=== PATIENT | female | born 1950 ===

== ENCOUNTER 2023-05-30 09:48 | Outpatient (CLI) | payer OTHER ==
[2023-05-30] MEDS ORDERED: NORVASC2.5 M1 (13:39)
[2023-05-30] MEDS ORDERED: PEPCID AC20 MG (13:39)
[2023-05-30] MEDS ORDERED: RESTORIL30 M1 (13:39)
[2023-05-30] MEDS ORDERED: LISINOPRIL40 MG (13:39)
[2023-05-30] MEDS ORDERED: TOPROL XL25 M1 (13:40)
[2023-05-30] MEDS ORDERED: CELEXA20 MG (13:40)
== END 2023-05-30 09:49 | disposition home or self-care (01) ==
LOC: EKG 09:48
PROVIDERS: ATTEND Obstetrics & Gynecology Gynecology
DX: I10 Essential (primary) hypertension (principal)

== ENCOUNTER 2023-06-06 07:47 | Day surgery (SDC) | payer OTHER ==
[~2023-06-06 07:47] MED LIST: CELEXA20 MG; LISINOPRIL40 MG; NORVASC2.5 M1; PEPCID AC20 MG; RESTORIL30 M1; TOPROL XL25 M1
[2023-06-06] MEDS ORDERED: CIPROFLOXACIN IN 5 % DEXTROSE 400 MG/200 ML PIGGYBAG IV ONE ×2 (10:48→12:15)
[2023-06-06] MEDS ORDERED: CHLORHEXIDINE GLUCONATE 120 ML BOTTLE TOP ONE (11:57)
[2023-06-06] MEDS ORDERED: MACROBID 100 M100 MG PO (12:31)
[2023-06-06] MEDS ORDERED: TRAM1TAB98 PO (12:33)
== END 2023-06-06 17:30 | disposition home or self-care (01) ==
LOC: CIR.AMB 07:47
PROVIDERS: ATTEND Obstetrics & Gynecology Gynecology
DX: N81.11 Cystocele, midline (principal); Z88.0 Allergy status to penicillin; Z88.6 Allergy status to analgesic agent